=== PATIENT | male | born 1940 | race Caucasian/White ===

== ENCOUNTER → 2016-11-16 | Outpatient (REF) | payer MEDICARE ==
[2016-11-16 12:11] LABS: ALBUMIN 3.8 GM/DL (3.2-5.2); ALBUMIN/GLOBULIN RATIO 1.36 (1.00-1.93); ALKALINE PHOSPHATASE 67 U/L (45-117); ALT/SGPT 28 U/L (12-78); ANION GAP 8 MEQ/L (8-16); AST/SGOT 8 U/L (15-37); BILIRUBIN,TOTAL 0.9 MG/DL (0.2-1.0); BLOOD UREA NITROGEN 18 MG/DL (7-18); CARBON DIOXIDE LEVEL 28 MEQ/L (21-32); CHLORIDE LEVEL 106 MEQ/L (98-107); CHOLESTEROL LEVEL 144 MG/DL (<200); CREATININE FOR GFR 1.04 MG/DL (0.70-1.30); GLOMERULAR FILTRATION RATE > 60.0 (>42); GLUCOSE, FASTING 91 MG/DL (83-110); POTASSIUM SERUM 4.4 MEQ/L (3.5-5.1); SODIUM LEVEL 142 MEQ/L (136-145); TOTAL PROTEIN 6.6 GM/DL (6.4-8.2); TRIGLYCERIDES LEVEL 115 MG/DL (<150)
== END ==
LOC: M SFHCCLAY 07:37
PROVIDERS: ATTEND Family Medicine
DX: E78.2 Mixed hyperlipidemia (principal); I10 Essential (primary) hypertension

== ENCOUNTER → 2017-02-08 | Outpatient (CLI) | payer MEDICARE, BC ==
[~2017-02-08] MED LIST: ASPI81TA85 PO; ATOR40TA75 PO; AZEL0.055; CART120C PO; COUM1TAB17 PO; COUM2.5T17 PO; FENO48TA2 PO; FLOM5CAP PO; FURO40TA2 PO; LOSA25TA8 PO; METO1TAB7 PO; PERC5TAB12 PO; POTA10CA32 PO; ROPI5TAB PO
--- NOTE | 2017-02-08 17:33 | REP ---
CHEST, TWO VIEWS: COMPARISON: 03/03/2012. There appears to be mild fibroatelectatic change in each lung base. No infiltrates are seen. The heart is normal in size. There is mild ectasia of the thoracic aorta. The mediastinal silhouette is unchanged. There are degenerative changes of the spine. IMPRESSION: Chronic changes without acute infiltrate. Signed by Qamar Salvador MD 02/09/2017 08:45 A
[2017-02-08 18:06] LABS: INR 0.97
[2017-02-08 18:08] LABS: ALBUMIN/GLOBULIN RATIO 1.43 (1.00-1.93); ALKALINE PHOSPHATASE 83 U/L (45-117); ALT/SGPT 39 U/L (12-78); ANION GAP 7 MEQ/L (8-16); AST/SGOT 10 U/L (15-37); BILIRUBIN,TOTAL 0.6 MG/DL (0.2-1.0); BLOOD UREA NITROGEN 23 MG/DL (7-18); CALCIUM LEVEL 9.3 MG/DL (8.8-10.2); CARBON DIOXIDE LEVEL 29 MEQ/L (21-32); CHLORIDE LEVEL 106 MEQ/L (98-107); CREATININE FOR GFR 1.17 MG/DL (0.70-1.30); GLOMERULAR FILTRATION RATE > 60.0 (>42); GLUCOSE, FASTING 87 MG/DL (83-110); POTASSIUM SERUM 4.4 MEQ/L (3.5-5.1); SODIUM LEVEL 142 MEQ/L (136-145); TOTAL PROTEIN 6.8 GM/DL (6.4-8.2)
[2017-02-08 18:09] LABS: MEAN CORPUSCULAR HEMOGLOBIN 32.7 pg (27.0-33.0); MEAN CORPUSCULAR HGB CONC 34.4 g/dl (32.0-36.5); MEAN CORPUSCULAR VOLUME 95.2 fl (80.0-96.0); RED CELL DISTRIBUTION WIDTH 13.4 % (11.5-14.5); WHITE BLOOD COUNT 5.4 K/mm3 (4.0-10.0)
== END ==
LOC: M LAB 16:14
PROVIDERS: ATTEND Orthopaedic Surgery
DX: Z01.818 Encounter for other preprocedural examination (principal); M17.11 Unilateral primary osteoarthritis, right knee; Z79.82 Long term (current) use of aspirin; Z79.899 Other long term (current) drug therapy

== ENCOUNTER → 2017-02-10 | Outpatient (CLI) | payer MEDICARE, BC ==
--- NOTE | 2017-02-10 22:56 | ECGEPIP ---
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
--- NOTE | 2017-02-12 15:59 | HPE ---
DATE OF ADMISSION: 02/15/2017 Arrived today for a preoperative history and physical for continuing symptomatic right knee osteoarthritis. HISTORY OF PRESENT ILLNESS: A pleasant male with continuing symptomatic right knee osteoarthritis. He is consented for right total knee arthroplasty per Dr. Piero Lee . Medical optimization per Dr. Mckinney. X-rays are consistent with advanced osteoarthritis. ALLERGIES: No known drug allergies. MEDICATIONS: - fenofibric [address] -Cardia 120 mg once daily - azelastine HCl 0.1% two sprays each nostril twice daily - furosemide 40 mg - potassium 10 mEq capsule - metoprolol succinate ER 50 mg once daily - atorvastatin 40 mg once daily - losartan potassium 25 mg once daily - ropinirole 5 mg once daily - aspirin 81 mg once daily MEDICAL PROBLEM LIST: 1. Right knee symptomatic osteoarthritis. 2. Hypertension. 3. Hypercholesteremia. 4. Heart disease. PAST SURGICAL HISTORY 1. Cordis Cypher coronary stent implanted 04/29/2005. 2. Alloderm graft, human skin tissue, 11/06/2013. SOCIAL HISTORY: Former smoker, quit in 1977. He does consume alcohol daily. Denies illicit drugs. FAMILY HISTORY: Noncontributory. REVIEW OF SYSTEMS: Denies chest pain, shortness of breath, dyspnea on exertion, fever, chills, malaise, upper respiratory or urinary tract symptoms. EKG as read through the [place] showed sinus bradycardia, probable left atrial abnormality, borderline inferior Q-waves. Chest x-ray by [facility] showed chronic changes of acute infiltrate as read by Dr. Qamar Salvador. Medical clearance completed by Dr. Mckinney. The patient was optimized per his note. LABORATORY DATA: Showed just cloudy urine appearance. WBC urine 5, amorphous sediment moderate. Urine culture: No growth. Nasal and sinus culture: normal félix. PHYSICAL EXAMINATION: Height 68 inches, weight 240, temperature 97.6, blood pressure (BP) 125/80, respirations 16, pulse 72. This is a pleasant well-developed, overweight male in no acute distress. He is alert and oriented times three. Mood and affect are appropriate. He ambulates without overt antalgia. Some favoring about the left lower extremity. No gross antalgia. Bilateral lower extremities were inspected. Skin, temperature, color, sensory, motor within normal limits. Right knee: Positive joint line tenderness and crepitance through flexion and extension. Bowels soft, nontender times four. Chest rises symmetrically. Lungs clear to auscultation. Neck supple. Negative jugular venous distention (JVD) or bruits. Normocephalic. IMPRESSION: 1. Symptomatic right knee osteoarthritis. 2. Patient consented for right total knee arthroplasty per Dr. Piero Lee. 3. Medical optimization per Dr. Mckinney. 4. 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 5. Sequential compression devices and thromboembolic deterrents (TEDs) in OR. MTDD
== END ==
LOC: M ADMPAT 09:18
PROVIDERS: ATTEND Orthopaedic Surgery
DX: Z01.818 Encounter for other preprocedural examination (principal); M17.11 Unilateral primary osteoarthritis, right knee
CPT/HCPCS: 81001; 87070; 87086; 93005; G0463

== ENCOUNTER 2017-02-15 11:15 | Inpatient (IN) | payer MEDICARE, BC ==
[2017-02-10 10:35] VITALS: BP 134/82
[~2017-02-15] VITALS: Ht 177.8 cm; Wt 108.9 kg
[~2017-02-15 11:15] MED LIST changes: -COUM1TAB17 PO; -COUM2.5T17 PO; -FLOM5CAP PO; -PERC5TAB12 PO
[2017-02-15] MEDS ORDERED: LR 1,000 ML IV ONE (11:30)
[2017-02-15] MEDS ORDERED: LR 1,000 ML IV SCH ×2 (11:45→15:45)
[2017-02-15] MEDS ORDERED: ACETAMINOPHEN 500 MG TAB PO ONE (11:45)
[2017-02-15] MEDS ORDERED: COUM1TAB17 PO (11:49)
[2017-02-15] MEDS ORDERED: MIDAZOLAM INJ 2 MG/2 ML VIAL (J2250) As Ordered ONE ×3 (12:00→14:07)
[2017-02-15] MEDS ORDERED: PROPOFOL 200 MG/20 ML VIAL As Ordered ONE (12:00)
[2017-02-15] MEDS ORDERED: fentaNYL 100 MCG/2 ML INJECTION (J3010) As Ordered ONE ×2 (12:00→12:10)
[2017-02-15] MEDS ORDERED: LIDOCAINE 2% INJ 100 MG/5 ML SDV (FOR ANES.) As Ordered ONE (12:00)
[2017-02-15] MEDS ORDERED: TRANEXAMIC ACID 100 MG/ML 10ML VIAL As Ordered ONE (12:44)
[2017-02-15] MEDS ORDERED: EPINEPHrine INJ 1 MG/ML 1ML AMP As Ordered ONE (12:44)
[2017-02-15] MEDS ORDERED: BUPIVACAINE LIPOSOME/PF 1.3% 20 ML VIAL (13.3MG/ML)(EXPAREL) As Ordered ONE (12:44)
[2017-02-15] MEDS ORDERED: ceFAZolin 1GM INJ (J0690) As Ordered ONE (13:01)
[2017-02-15] MEDS ORDERED: MIDAZOLAM INJ 2 MG/2 ML VIAL (J2250) IV ONE (13:30)
[2017-02-15] MEDS ORDERED: fentaNYL 100 MCG/2 ML INJECTION (J3010) IV ONE (13:30)
[2017-02-15] MEDS ORDERED: ePHEDrine SULFATE 25 MG/5 ML(5MG/ML) SYRINGE As Ordered ONE (13:51)
[2017-02-15] MEDS ORDERED: PHENYLephrine HCL 500 MCG/5 ML (100MCG/ML) SYRINGE (J2370) As Ordered ONE (13:51)
[2017-02-15] MEDS ORDERED: ROPIvacaine 0.5% 30 ML INJECTION (J2795) ONE (13:57)
[2017-02-15] MEDS ORDERED: dexameTHASONE 10 MG/1 ML VIAL PRES.FREE (J1100) ONE (13:57)
[2017-02-15] MEDS ORDERED: EPINEPHrine INJ 1 MG/ML 1ML AMP ONE (13:57)
[2017-02-15] MEDS ORDERED: ONDANSETRON 4MG/2ML VIAL (J2405) As Ordered ONE (14:51)
[2017-02-15] MEDS ORDERED: MORPHINE 1MG/ML IN 0.9% NACL 100ML IV BAG As Ordered ONE (15:08)
[2017-02-15] MEDS ORDERED: MORPHINE 1MG/ML IN 0.9% NACL 100ML IV BAG IV PRN (15:45)
[2017-02-15] MEDS ORDERED: FLEET ENEMA PR PRN (15:45)
[2017-02-15] MEDS ORDERED: diphenhydrAMINE INJ 50MG/ML VIAL (J1200) IV PRN (15:45)
[2017-02-15] MEDS ORDERED: EPIDURAL/PCA KEYS XX PRN (15:45)
[2017-02-15] MEDS ORDERED: ONDANSETRON 4MG/2ML VIAL (J2405) IV PRN ×2 (15:45)
[2017-02-15] MEDS ORDERED: MORPHINE 2 MG/ML 1ML SYRINGE IV PRN (15:45)
[2017-02-15] MEDS ORDERED: NALOXONE INJ 0.4 MG/1 ML VIAL (J2310) IV PRN (15:45)
[2017-02-15] MEDS ORDERED: fentaNYL 100 MCG/2 ML INJECTION (J3010) IV PRN (15:45)
[2017-02-15] MEDS ORDERED: NALBUPHINE HCL 10 MG/ML AMP (J2300) IV PRN (15:45)
[2017-02-15] MEDS ORDERED: PERCOCET 5MG/325MG TAB PO PRN (15:45)
[2017-02-15] MEDS ORDERED: METOCLOPRAMIDE INJ 10MG/2ML VIAL (J2765) IV PRN (15:45)
[2017-02-15 16:20] VITALS: BP 161/87
--- NOTE | 2017-02-15 16:23 | IPNPDOC ---
Subjective Date Seen The patient was seen on 02/15/17. Subjective Chief Complaint/HPI The patient is a 76-year-old male admitted with a reason for visit of Right Knee Arthritis. Events since last encounter pateint does not offer any complaints at this time, no chest pain or sob , no nausea or vomiting or abdominal pain , no cough or phlegm Objective Physical Examination General Exam: Positive: Alert, Cooperative, No Acute Distress Eye Exam: Positive: PERRLA, Conjunctiva & lids normal, EOMI, Negative: Sclera icteric ENT Exam: Positive: Atraumatic, Mucous membr. moist/pink, Pharynx Normal Neck Exam: Positive: Supple, Negative: JVD, thyromegaly Chest Exam: Positive: Clear to auscultation, Normal air movement Telemetry: Positive: No significant arrhythmia Abdomen Exam: Positive: Normal bowel sounds, Soft, Negative: Tenderness, Hepatospenomegaly Extremity Exam: Positive: Normal pulses, Negative: Clubbing, Cyanosis, Edema Assessment /Plan Problems (1) S/P total knee arthroplasty Status: Acute Problem Text: patient had elective total knee arthroplasty done on 02/15/17 for advanced osteoarthritis. surgery was without any complications pain control and dvt prophylaxis as per ortho protocol. pateint is going to be followed by Dr Smith from 02/16/17 (2) LUIS ANTONIO on CPAP Status: Chronic (3) CAD S/P percutaneous coronary angioplasty Status: Chronic Problem Text: continue home medications. will hold asa as patient going to be on Coumadin. (4) Hypertension Status: Chronic Problem Text: continue home medications losartan , diltiazem and metoprolol with hold parameters. will hold lasix as patient on ivf. will restart on discharge. (5) BPH (benign prostatic hyperplasia) Status: Chronic (6) Restless leg syndrome Status: Chronic Problem Text: continue ropinirole (7) Hyperlipidemia Status: Chronic Problem Text: continue statin. Plan/VTE VTE Prophylaxis Ordered?: Yes VS, I&O, 24H, Fishbone Vital Signs/I&O Vital Signs Date Time Temp Pulse Resp B/P (MAP) Pulse Ox O2 Delivery O2 Flow Rate FiO2 02/15/17 16:05 64 20 131/74 (93) 96 Nasal Cannula 2 02/15/17 15:50 97.3 ANN JASMINE MD Feb 15, 2017 16:23
--- NOTE | 2017-02-15 16:33 | RO ---
DATE OF PROCEDURE: 02/15/2017 PREPROCEDURE DIAGNOSIS: Right knee degenerative arthritis. POSTPROCEDURE DIAGNOSIS: Right knee degenerative arthritis. OPERATIVE PROCEDURE: Right total knee arthroplasty using a size 3 cruciate retaining femoral component with a size 3 tibial tray with a 10 mm rotating platform polyethylene insert. SURGEON: Devon Lee MD PHYSICAL THERAPY MANAGER: Mr. Danilo Diez ANESTHESIA: Right femoral nerve block with a spinal anesthetic. COMPLICATIONS: None. SPECIMENS: Joint surface. ESTIMATED BLOOD LOSS: Less than 50 mL DESCRIPTION OF PROCEDURE: Antibiotics were given intravenously preoperatively, then a successful spinal anesthetic was induced and a tourniquet was placed right upper thigh and not inflated. Right lower extremity was then carefully prepped and draped in the usual sterile fashion. The leg was elevated and then after appropriate time out the tourniquet was inflated to 275 mmHg. Longitudinal incision was made for a medial parapatellar approach to the knee. Bovie cautery was used to coagulate the crossing vessels. A minimal subperiosteal dissection proximal to medial was performed because he had a relatively valgus knee and then there was severe patellofemoral disease as well as both full thickness chondral defects in the medial and lateral femoral condyles. The patella was markedly dished. We managed to edin the patella, then flex the knee and then the drill was placed on the center of the femoral canal followed by the distal femoral cutting block set at a 5 degrees valgus cut at 10 mm resection level for a right knee. It was pinned into position and the distal femoral cut performed. AP sizing jig measured for a size 3 femoral component. The 3 degrees external rotation block was then placed. Even then it had the appearance of there possibly being some deficiency of the lateral femoral condyle, thus on the white side of the line looked reasonable, so did the medial epicondylar axis, however, to be safe I decided to cut the tibia first so I could see what the spacing was between the extension and flexion gap before proceeding with any further femoral work. Thus, the extramedullary alignment jig was placed to allow us to attempt to be parallel to the mechanical axis of the tibia. We referenced off the medial tibia and lateral tibial condyles at 4 mm resection level and both showed equal resection. Thus at this point, the block was pinned into position and then we used the extramedullary alvarez to help be sure and estimate once again that we were indeed parallel to the mechanical axis of the tibia. The proximal tibia osteotomy was then performed. I then used the 8 mm spacer block to align with the previous distal femoral cut and it showed indeed that we appeared to have good parallelism between the flexion and extension gaps, thus I felt the rotation was adequate. Thus the four-in-one block was then applied to the femur, pinned into position and we performed and then we performed the anterior posterior and chamfer cuts taking great care to protect the surrounding soft tissues. The spacer blocks were then trialed, however, he was tight with a 10 mm block in both flexion and in extension, thus the tibial cutting jig was reapplied and additional 2 mm were resected. This allowed the 10 mm block to fit nicely with good stability to varus valgus stress testing both in flexion and in extension. We then exposed the proximal tibia, sized for a 3 tibial tray which was pinned into position followed by the reamer and broach, then trial of polyethylene placed. However, it should noted that prior to this we did do a resection of the medial and lateral meniscal tissues and debridement of the posterior medial and posterior lateral osteophytes prior to placing our tibial tray trial. The femoral component was then applied, brought the knee to extension. Again he had good flexion and extension, varus valgus stability. The patella was everted and noted to be markedly dished, but a patellar osteotomy was then performed, sized for a 38 button, which then the lug holes were drilled, trial polyethylene was placed and the patellofemoral tracking came out anatomic. We drilled the lug holes for the femur and then removed the trial femoral and tibial tray, then Exparel was placed into the posterior capsule trochlear notch and along the periosteum of the femur and the tibia and the arthrotomy. Mr. Diez then mixed the cement on the back table as I prepared the bony surfaces for cementing with a copious amount of pulsatile lavage irrigant solution. Once all the surfaces had been dried thoroughly, we cemented the tibial tray, removed excess cement, placed the polyethylene and then cemented the femoral component, removed the excess cement, brought the knee into extension, then cemented the patellar button and clamped it. Removed the excess cement and held that position until the cement had hardened. While we were waiting we again pulsatile lavage irrigated out the knee joint and then instilled the tranexamic acid into the knee and then the remaining Exparel into the capsular tissues. We then closed the arthrotomy with two #1 PDS Fordyce sutures and then one at the medial parapatellar area, then a running double arm Stratafix was used to close the capsule. We let the tourniquet down at this point, closed deep subdermal tissues with interrupted PDS sutures, skin was closed with johnathan, covered by Adaptic dry sterile dressing. Mr. Diez was also critical to the success of this difficult surgery by helping manipulate the knee, help with appropriate soft tissue retraction, help with appropriate soft tissue retraction, helped to mix the cement, helped to close the wound, prepare the patient amongst many other tasks.
[2017-02-15 17:00] VITALS: BP 138/82
[2017-02-15] MEDS: LR 1,000 ML IV SCH (17:00)
[2017-02-15] MEDS ORDERED: WARFARIN SOD 5 MG TAB PO ONE (17:00)
[2017-02-15 18:00] VITALS: BP 115/77
[2017-02-15 19:00] VITALS: BP 120/74
[2017-02-15] MEDS: rOPINIRole 0.25 MG TAB(REQUIP) PO SCH (21:07)
[2017-02-15] MEDS: ATORVASTATIN 20 MG TAB PO SCH (21:10)
[2017-02-15] MEDS: METOPROLOL SUCC (TopROL XL) 50MG **XL** TAB PO SCH (21:10)
[2017-02-15 22:00] VITALS: BP 162/80
[2017-02-16] MEDS: LR 1,000 ML IV SCH (03:47)
[2017-02-16] MEDS ORDERED: ONDANSETRON 4 MG TAB (S0181) PO PRN (07:00)
[2017-02-16] MEDS ORDERED: PERCOCET 5MG/325MG TAB PO PRN ×2 (07:00)
[2017-02-16 07:06] LABS: MEAN CORPUSCULAR HEMOGLOBIN 32.9 pg (27.0-33.0); MEAN CORPUSCULAR HGB CONC 33.4 g/dl (32.0-36.5); MEAN CORPUSCULAR VOLUME 98.5 fl (80.0-96.0); RED CELL DISTRIBUTION WIDTH 13.6 % (11.5-14.5); WHITE BLOOD COUNT 7.4 K/mm3 (4.0-10.0)
[2017-02-16 07:17] LABS: ANION GAP 9 MEQ/L (8-16); BLOOD UREA NITROGEN 16 MG/DL (7-18); CALCIUM LEVEL 8.9 MG/DL (8.8-10.2); CARBON DIOXIDE LEVEL 27 MEQ/L (21-32); CHLORIDE LEVEL 103 MEQ/L (98-107); CREATININE FOR GFR 1.07 MG/DL (0.70-1.30); GLOMERULAR FILTRATION RATE > 60.0 (>42); GLUCOSE, FASTING 120 MG/DL (83-110); POTASSIUM SERUM 4.2 MEQ/L (3.5-5.1); SODIUM LEVEL 139 MEQ/L (136-145)
[2017-02-16 07:27] LABS: INR 1.12
[2017-02-16] MEDS: MOM 30ML SUSPENSION UDC PO SCH (08:11)
[2017-02-16] MEDS: MIRALAX *UNIT DOSE* 17GM PACKET PO SCH (08:11)
[2017-02-16] MEDS: TAMSULOSIN 0.4 MG CAP PO SCH (08:12)
[2017-02-16] MEDS: SENOKOT S TAB PO SCH ×2 (08:12→20:02)
[2017-02-16] MEDS: FENOFIBRATE 48 MG TAB (TRICOR) PO SCH (08:12)
[2017-02-16] MEDS: BISACODYL 10 MG SUPP PR SCH ×2 (09:00→20:05)
--- NOTE | 2017-02-16 12:47 | REP ---
RIGHT KNEE: AP and lateral views of the right knee are performed. There is a total knee prosthesis in good position. The structures are well aligned. Metallic skin johnathan are seen anteriorly. Signed by Qamar Salvador MD 02/16/2017 05:09 P
[2017-02-16 14:00] VITALS: BP 156/78
[2017-02-16] MEDS: ACETAMINOPHEN TAB 650MG DOSE (2X325MG) PO PRN ×2 (14:37→20:03)
--- NOTE | 2017-02-16 15:12 | IPN ---
DATE: 02/16/2017 This is a 76-year-old gentleman seen at bedside. Overnight he did have an issue with urinary retention. They straight catheterized him. Wanted to try to straight catheterize him again today and were unable to advance the straight catheter enough to get some return. The bladder scan did demonstrate that he had close to 300 mL in his bladder. We did start him on Flomax, which did seem to relieve his symptoms later in the morning. OBJECTIVE: Temperature is 96.6, pulse 83, respiratory rate is 20, blood pressure (BP) 156/93, SPO2 is 95% on room air. GENERAL: The patient appears to be in no acute distress. Is alert, oriented. HEENT: Unremarkable. LUNGS: Clear. HEART: Regular rate and rhythm. ABDOMEN: Soft. EXTREMITIES: No edema or calf tenderness. LABORATORY DATA: White count 5.2, hemoglobin 12.0, platelets are 241,000. Sodium 141, potassium 4.5, chloride 105, bicarbonate 30, anion gap 6, BUN is 21, creatinine 0.63, glucose 138, magnesium is 1.8. ASSESSMENT AND PLAN: 1. Urinary retention, likely secondary to anesthesia and underlying history of likely benign prostatic hypertrophy (BPH). I did start him on Flomax this morning. He does appear to be responsive to this. I did discuss the case with urology. Will hold off on consult for now unless the patient has worsening symptoms. 2. Obstructive sleep apnea on continuous positive airway pressure (CPAP). Continue use of home CPAP. 3. Coronary artery disease status post percutaneous coronary angioplasty. Continue home medications: Hold aspirin and Coumadin for now 4. Hypertension, chronic, stable, on losartan, diltiazem, metoprolol with hold parameters in place. Intravenous (IV) Lasix is on hold for now. Will resume on discharge 5. BPH as outlined above. 6. Restless leg syndrome, stable. 7. Hyperlipidemia. Continue statin. 8. Deep vein thrombosis (DVT) prophylaxis per orthopedics 9. Pain control per orthopedics. MTDD
[2017-02-16] MEDS ORDERED: WARFARIN SOD 5 MG TAB PO ONE (17:00)
[2017-02-16] MEDS: METOPROLOL SUCC (TopROL XL) 50MG **XL** TAB PO SCH (20:02)
[2017-02-16] MEDS: rOPINIRole 0.25 MG TAB(REQUIP) PO SCH (20:02)
[2017-02-16] MEDS: ATORVASTATIN 20 MG TAB PO SCH (20:02)
[2017-02-16 22:00] VITALS: BP 157/77
[2017-02-17 06:00] VITALS: BP 133/78
[2017-02-17] MEDS: ACETAMINOPHEN TAB 650MG DOSE (2X325MG) PO PRN (06:36)
[2017-02-17 07:14] LABS: MEAN CORPUSCULAR HGB CONC 34.3 g/dl (32.0-36.5); MEAN CORPUSCULAR VOLUME 96.1 fl (80.0-96.0); RED CELL DISTRIBUTION WIDTH 13.3 % (11.5-14.5); WHITE BLOOD COUNT 7.2 K/mm3 (4.0-10.0)
[2017-02-17 07:20] LABS: ANION GAP 10 MEQ/L (8-16); BLOOD UREA NITROGEN 19 MG/DL (7-18); CALCIUM LEVEL 8.5 MG/DL (8.8-10.2); CARBON DIOXIDE LEVEL 25 MEQ/L (21-32); CHLORIDE LEVEL 103 MEQ/L (98-107); CREATININE FOR GFR 1.03 MG/DL (0.70-1.30); GLOMERULAR FILTRATION RATE > 60.0 (>42); GLUCOSE, FASTING 123 MG/DL (83-110); POTASSIUM SERUM 4.2 MEQ/L (3.5-5.1); SODIUM LEVEL 138 MEQ/L (136-145)
[2017-02-17 07:23] LABS: INR 1.42
[2017-02-17] MEDS ORDERED: FLOM5CAP PO (07:23)
[2017-02-17] MEDS ORDERED: COUM2.5T17 PO (08:08)
[2017-02-17] MEDS ORDERED: PERC5TAB12 PO (08:08)
[2017-02-17] MEDS ORDERED: ENOXAPARIN 40 MG/0.4 ML SYRINGE (J1650) SC ONE (08:30)
[2017-02-17 09:00] VITALS: BP 132/79
[2017-02-17] MEDS: BISACODYL 10 MG SUPP PR SCH (09:00)
[2017-02-17] MEDS: MOM 30ML SUSPENSION UDC PO SCH (09:00)
[2017-02-17] MEDS: MIRALAX *UNIT DOSE* 17GM PACKET PO SCH (09:00)
[2017-02-17] MEDS: TAMSULOSIN 0.4 MG CAP PO SCH (09:50)
[2017-02-17] MEDS: SENOKOT S TAB PO SCH (09:51)
[2017-02-17] MEDS: FENOFIBRATE 48 MG TAB (TRICOR) PO SCH (09:51)
--- NOTE | 2017-02-21 19:40 | DSES ---
DATE OF ADMISSION: 02/15/2017 DATE OF DISCHARGE: 02/17/2017 DISCHARGE DIAGNOSIS: Right knee arthritis status post right total knee arthroplasty. HISTORY: This is a pleasant 76-year-old male with persistent right knee pain and stiffness. He has failed to improve with conservative treatment. He has elected for surgery for his continued symptoms. He complains of pain with weightbearing activities and activities of daily living. PROCEDURE PERFORMED: Right total knee arthroplasty. HOSPITAL COURSE: The patient was admitted on the day of surgery and underwent right total knee arthroplasty without complications. On the day of discharge the patient was up with physical therapy and was doing well. DISCHARGE PLAN: The patient will be weightbearing as tolerated to the right lower extremity. He will use oral medications for pain control. He will followup in the office in 2 weeks for staple removal.
== END 2017-02-17 13:25 | disposition home health service (06) | DRG 470 ==
LOC: M OR 11:15 → M MS5PR 16:20
PROVIDERS: ADMIT Orthopaedic Surgery; ATTEND Orthopaedic Surgery
PROC: 0SRC0J9 Replacement of Right Knee Joint with Synthetic Substitute, Cemented, Open Approach (ICD-10-PCS; principal; 2017-02-15 13:35)
DX: M17.11 Unilateral primary osteoarthritis, right knee (principal); I10 Essential (primary) hypertension; R33.9 Retention of urine, unspecified; G47.33 Obstructive sleep apnea (adult) (pediatric); I25.10 Atherosclerotic heart disease of native coronary artery without angina pectoris; N40.0 Benign prostatic hyperplasia without lower urinary tract symptoms; E78.5 Hyperlipidemia, unspecified; G25.81 Restless legs syndrome

== ENCOUNTER → 2017-03-09 | Outpatient (REF) | payer MEDICARE, BC ==
[~2017-03-09] MED LIST changes: +COUM1TAB17 PO; +COUM2.5T17 PO; +FLOM5CAP PO; +PERC5TAB12 PO
[2017-03-09 17:58] LABS: INR 1.12
== END ==
LOC: M LAB REF 16:15
PROVIDERS: ATTEND Nurse Practitioner Family
DX: Z51.81 Encounter for therapeutic drug level monitoring (principal); Z79.01 Long term (current) use of anticoagulants

== ENCOUNTER → 2017-03-11 | Outpatient (REF) | payer MEDICARE, BC ==
[2017-03-11 12:53] LABS: INR 1.17
== END ==
LOC: M LABDRAWC 11:42
PROVIDERS: ATTEND Nurse Practitioner Family
DX: Z79.01 Long term (current) use of anticoagulants (principal)

== ENCOUNTER → 2017-03-15 | Outpatient (REF) | payer MEDICARE, BC ==
[2017-03-15 12:06] LABS: INR 1.92
== END ==
LOC: M SFHCCLAY 11:22
PROVIDERS: ATTEND Nurse Practitioner Family
DX: Z79.01 Long term (current) use of anticoagulants (principal)

== ENCOUNTER → 2017-09-13 | Outpatient (CLI) | payer MEDICARE, BC | LOC: M CLY 09:17 | DX: M51.34 Other intervertebral disc degeneration, thoracic region (principal) | CPT/HCPCS: 72072 ==

== ENCOUNTER → 2017-11-09 | Outpatient (REF) | payer MEDICARE ==
[2017-11-09 12:23] LABS: ALBUMIN/GLOBULIN RATIO 1.54 (1.00-1.93); ALKALINE PHOSPHATASE 71 U/L (45-117); ALT/SGPT 24 U/L (12-78); ANION GAP 5 MEQ/L (8-16); AST/SGOT 6 U/L (7-37); BILIRUBIN,TOTAL 0.5 MG/DL (0.2-1.0); BLOOD UREA NITROGEN 16 MG/DL (7-18); CALCIUM LEVEL 8.4 MG/DL (8.8-10.2); CARBON DIOXIDE LEVEL 29 MEQ/L (21-32); CHLORIDE LEVEL 110 MEQ/L (98-107); CHOLESTEROL LEVEL 134 MG/DL (<200); CHOLESTEROL RISK RATIO 2.851 (<5); CREATININE FOR GFR 0.95 MG/DL (0.70-1.30); GLOMERULAR FILTRATION RATE > 60.0 (>42); GLUCOSE, FASTING 95 MG/DL (70-100); HDL CHOLESTEROL 47 MG/DL (>40); LDL CHOLESTEROL 68.6 MG/DL (<100); NON-HDL-C 87 MG/DL; POTASSIUM SERUM 4.5 MEQ/L (3.5-5.1); PSA SCREENING 0.61 NG/ML (< 4.0); SODIUM LEVEL 144 MEQ/L (136-145); TOTAL PROTEIN 6.6 GM/DL (6.4-8.2); TRIGLYCERIDES LEVEL 92 MG/DL (<150)
== END ==
LOC: M SFHCCLAY 07:43
DX: E78.2 Mixed hyperlipidemia (principal); Z12.5 Encounter for screening for malignant neoplasm of prostate; I10 Essential (primary) hypertension
CPT/HCPCS: 84443

== ENCOUNTER 2018-01-26 11:33 | Day surgery (SDC) | payer MEDICARE, BC ==
[2018-01-26] MEDS: NS 1,000 ML IV (11:45)
[2018-01-26] MEDS ORDERED: PROPOFOL 200 MG/20 ML VIAL As Ordered ×2 (12:48→13:00)
== END 2018-01-26 13:39 | disposition home or self-care (01) ==
LOC: M OPP 11:33
DX: Z12.11 Encounter for screening for malignant neoplasm of colon (principal); K64.0 First degree hemorrhoids; D12.2 Benign neoplasm of ascending colon; G47.30 Sleep apnea, unspecified; N40.0 Benign prostatic hyperplasia without lower urinary tract symptoms; I51.9 Heart disease, unspecified; I11.9 Hypertensive heart disease without heart failure; E78.00 Pure hypercholesterolemia, unspecified; M12.9 Arthropathy, unspecified; Z79.01 Long term (current) use of anticoagulants; Z79.891 Long term (current) use of opiate analgesic; Z79.899 Other long term (current) drug therapy; Z87.891 Personal history of nicotine dependence; Z95.5 Presence of coronary angioplasty implant and graft
CPT/HCPCS: 45385

== ENCOUNTER → 2018-05-16 | Outpatient (REF) | payer MEDICARE ==
[2018-05-16 11:56] LABS: ANION GAP 6 MEQ/L (8-16); BLOOD UREA NITROGEN 21 MG/DL (7-18); CALCIUM LEVEL 8.6 MG/DL (8.8-10.2); CARBON DIOXIDE LEVEL 30 MEQ/L (21-32); CHLORIDE LEVEL 105 MEQ/L (98-107); CHOLESTEROL LEVEL 138 MG/DL (<200); CREATININE FOR GFR 0.97 MG/DL (0.70-1.30); GLOMERULAR FILTRATION RATE > 60.0 (>42); GLUCOSE, FASTING 92 MG/DL (70-100); HDL CHOLESTEROL 50 MG/DL (>40); LDL CHOLESTEROL 57 MG/DL (<100); NON-HDL-C 88 MG/DL; POTASSIUM SERUM 4.7 MEQ/L (3.5-5.1); SODIUM LEVEL 141 MEQ/L (136-145); TRIGLYCERIDES LEVEL 153 MG/DL (<150)
== END ==
LOC: M SFHCCLAY 07:47
DX: E78.2 Mixed hyperlipidemia (principal)
CPT/HCPCS: 80061

== ENCOUNTER 2018-08-31 08:19 | Day surgery (SDC) | payer MEDICARE, BC ==
[~2018-08-31] VITALS: Ht 177.8 cm; Wt 108.4 kg
[~2018-08-31 08:19] MED LIST changes: +FLOM0.4C39 PO; -FLOM5CAP PO; +LOSA25TA14 PO; -LOSA25TA8 PO; +MULT1TAB10 PO; +NS 1,000 ML IV ONE; -ROPI5TAB PO; +ROPI5TAB3 PO
[2018-08-31] MEDS ORDERED: LIDOCAINE 2% INJ 100 MG/5 ML SDV (FOR ANES.) As Ordered ONE (09:17)
[2018-08-31] MEDS ORDERED: PROPOFOL 200 MG/20 ML VIAL As Ordered ONE (09:31)
--- NOTE | 2018-08-31 09:46 | ROOR ---
Patient Name: Cleopatra Beltran Procedure Date: 08/31/2018 9:14 AM Date of : 1940 Age: 78 Room: [facility] Gender: Male Note Status: Finalized Procedure: Total Colonoscopy + Cold/Biopsy Polypectomy Indications: High risk colon cancer surveillance: Personal history of colonic polyps, High risk colon cancer surveillance: Personal history of adenoma with villous component, Incidental - Follow-up for history of colon polyps of uncertain behavior Providers: Milad Correa MD Referring MD: BRONWYN MURRAY DO Requesting Provider: Medicines: Monitored Anesthesia Care Complications: No immediate complications. Procedure: Pre-Anesthesia Assessment: - The heart rate, respiratory rate, oxygen saturations, blood pressure, adequacy of pulmonary ventilation, and response to care were monitored throughout the procedure. The Colonoscope was introduced through the anus and advanced to the cecum, identified by appendiceal orifice and ileocecal valve. The colonoscopy was performed without difficulty. The patient tolerated the procedure well. The quality of the bowel preparation was good. Findings: The perianal and digital rectal examinations were normal. Non-bleeding internal hemorrhoids were found during retroflexion. The hemorrhoids were small and Grade I (internal hemorrhoids that do not prolapse). Multiple small and large-mouthed diverticula were found in the recto-sigmoid colon, sigmoid colon and descending colon. A small polyp was found at 50 cm proximal to the anus. The polyp was sessile. The polyp was removed with a cold snare. Resection and retrieval were complete. Two sessile polyps were found in the transverse colon. The polyps were small in size. These polyps were removed with a jumbo cold forceps. Resection and retrieval were complete. The exam was otherwise without abnormality on direct and retroflexion views. Impression: - Non-bleeding internal hemorrhoids. - Diverticulosis in the recto-sigmoid colon, in the sigmoid colon and in the descending colon. - One small polyp at 50 cm proximal to the anus, removed with a cold snare. Resected and retrieved. - Two small polyps in the transverse colon, removed with a jumbo cold forceps. Resected and retrieved. - The examination was otherwise normal on direct and retroflexion views. - The exam was otherwise normal to the cecum. Recommendation: - Patient has a contact number available for emergencies. The signs and symptoms of potential delayed complications were discussed with the patient. Return to normal activities tomorrow. Written discharge instructions were provided to the patient. - High fiber diet. - Discharge patient to home. - Continue present medications. - Repeat colonoscopy in 3 years for surveillance based on pathology results. - Return to referring physician. - Check Portal Online for Path Results.([email or web address]) - The findings and recommendations were discussed with the patient's family. Milad Correa MD Milad Correa MD 08/31/2018 9:46:00 AM This report has been signed electronically. Number of Addenda: 0 Note Initiated On: 08/31/2018 9:14 AM Estimated Blood Loss: Estimated blood loss: none.
[2018-08-31 10:15] VITALS: BP 166/92
== END 2018-08-31 10:24 | disposition home or self-care (01) ==
LOC: M OPP 08:19
PROVIDERS: ATTEND Internal Medicine Gastroenterology
DX: Z86.010 Personal history of colon polyps (principal); Z08 Encounter for follow-up examination after completed treatment for malignant neoplasm; K64.0 First degree hemorrhoids; D12.3 Benign neoplasm of transverse colon; K57.30 Diverticulosis of large intestine without perforation or abscess without bleeding; G47.30 Sleep apnea, unspecified; Z79.82 Long term (current) use of aspirin; Z79.899 Other long term (current) drug therapy; Z95.5 Presence of coronary angioplasty implant and graft; Z79.891 Long term (current) use of opiate analgesic

== ENCOUNTER → 2018-12-09 | Outpatient (CLI) | payer MEDICARE, BC ==
[~2018-12-09] MED LIST changes: +B COTAB3 PO; +C 50TAB PO; +MULTCAP PO; -NS 1,000 ML IV ONE; +PURE500C5 PO; +VITAD1000T PO
[2018-12-09 09:48] LABS: HEMATOCRIT 53.8 % (42.0-52.0); HEMOGLOBIN 18.1 g/dl (13.5-17.5); MEAN CORPUSCULAR HGB CONC 33.6 g/dl (32.0-36.5); PLATELET COUNT, AUTOMATED 196 10^3/uL (150-450); RED BLOOD COUNT 5.49 10^6/uL (4.30-6.10); WHITE BLOOD COUNT 4.1 10^3/uL (4.0-10.0)
[2018-12-09 09:53] LABS: INR 0.98; PROTHROMBIN TIME 13.1 SECONDS (12.1-14.4)
[2018-12-09 10:10] LABS: ALT/SGPT 40 U/L (12-78); BILIRUBIN,TOTAL 0.9 MG/DL (0.2-1.0); BLOOD UREA NITROGEN 16 MG/DL (7-18); CALCIUM LEVEL 9.4 MG/DL (8.8-10.2); CARBON DIOXIDE LEVEL 32 MEQ/L (21-32); CHLORIDE LEVEL 104 MEQ/L (98-107); GLOMERULAR FILTRATION RATE > 60.0 (>42); GLUCOSE, FASTING 67 MG/DL (70-100); POTASSIUM SERUM 4.7 MEQ/L (3.5-5.1); SODIUM LEVEL 141 MEQ/L (136-145)
[2018-12-09 10:13] LABS: ERYTHROCYTE SEDIMENTATION RATE 4 mm/hr (0-20)
--- NOTE | 2018-12-09 12:42 | REP ---
Chest two views HISTORY: Preop Comparison: 02/08/2017 A minimal increase in interstitial markings is present in the lower lobes consistent with chronic interstitial fibrosis. The heart is normal in size. The pulmonary vasculature is normal in appearance. The bony structure is intact. IMPRESSION: Bibasilar chronic interstitial fibrosis. Electronically Signed by Fernando Thomas MD 12/09/2018 12:33 P
--- NOTE | 2018-12-09 20:19 | ECGEPIP ---
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 Electronically Signed on 12-09-2018 20:19:30 EDT by Tucker Figueroa
== END ==
LOC: M LAB 09:07
PROVIDERS: ATTEND Orthopaedic Surgery
DX: Z01.812 Encounter for preprocedural laboratory examination (principal); M17.12 Unilateral primary osteoarthritis, left knee; R91.8 Other nonspecific abnormal finding of lung field; R00.1 Bradycardia, unspecified

== ENCOUNTER 2018-12-26 07:00 | Inpatient (IN) | payer MEDICARE, BC ==
--- NOTE | 2018-12-22 13:03 | HPE ---
DATE OF ADMISSION: 12/26/2018 HISTORY OF PRESENT ILLNESS This is a pleasant male with continuing symptomatic left knee osteoarthritis. He has consented for a left total knee arthroplasty per Dr. Piero Lee. Medical optimization per Dr. Noble. X-rays are consistent with advanced osteoarthritis. ALLERGIES: None known to medications. CURRENT MEDICATION LIST: - multivitamin chewable once a day - Vitamin B complex orally daily - cyclobenzaprine HCl 10 mg tablet one as needed orally three times a day - Vitamin D3 1000 units capsule 1 capsule orally once a day - losartan potassium 25 mg tablet 1 tablet orally once a day - azelastine HCl 0.1% solution 2 puffs in each nostril nasally twice a day p.r.n. - atorvastatin calcium 40 mg tablet 1 tablet orally once a day - Cartia XT 120 mg capsule extended release 24-hour 1 capsule orally once a day - metoprolol succinate ER 50 mg tablet extended release 24-hour 1 tablet orally once a day - aspirin 81 mg tablet delayed release 1 tablet orally once a day - ropinirole HCl 5 mg tablet 1 tablet orally once a day - Cialis 20 mg tablet 1 tablet orally once a day as needed MEDICAL PROBLEM LIST: 1. Symptomatic left knee osteoarthritis. 2. Hyperlipidemia. 3. Unspecified essential hypertension. 4. Restless leg syndrome. 5. Deviated nasal septum. 6. Coronary artery disease. 7. Angina nonspecified. 8. Obstructive sleep apnea on C-PAP. SURGICAL HISTORY: 1. Coronary stent implantation 04/29/2005. 2. AlloDerm graft human skin tissue 11/2013. 3. Bilateral cataract 2009. 4. Bilateral knee arthroscopy. 5. Right total knee Dr. Piero Lee 2016. 6. Colonoscopy Dr. Correa 2007. 7. Colonoscopy, three large polyps, villous adenoma, 01/2018. 8. Colonoscopy polyps, repeat 08/2018. FAMILY HISTORY: Father 78, emphysema. Mother 101 years, diagnosed with hypertension. Siblings, brain stem cancer. Daughter, breast cancer. SOCIAL HISTORY: Former smoker. It has been greater than 10 years since his last cigarette. He denies alcohol or recreational drugs. REVIEW OF SYSTEMS: Denies chest pain, shortness of breath, dyspnea on exertion, fever, chills, malaise, upper respiratory or urinary tract symptoms. LABS: Reviewed, acquired 12/09/2018, hemoglobin 18.1, hematocrit 53.8, MCV 98.0, glucose 67, anion gap 5, otherwise all labs within normal limits. GFR noted to be within normal limits greater than 60. Chest x-ray shows bibasilar chronic interstitial fibrosis. EKG sinus bradycardia, otherwise normal, as read by Dr. Tucker Figueroa. MEDICAL CLEARANCE: Per Dr. Noble. PHYSICAL EXAMINATION: Blood pressure (BP) 127/87, pulse 88, temperature 97.5, height 68.5, weight 241 pounds and 6 ounces, BMI 36.2, respirations 13. This is a pleasant well-developed, well-nourished obese male in no acute distress. Alert and oriented times. Mood and affect are appropriate. Bilateral lower extremities benign, noninfectious looking, skin is intact. Left knee positive joint line tenderness with crepitance through flexion and extension. He does have a firm abdomen secondary to central obesity, also some herniation noted, he admits to history of herniation and some surgical intervention. Chest rises symmetrically. Regular rate and rhythm. Lungs clear. Neck: Supple. Negative jugular venous distention (JVD) or bruits. Normocephalic. IMPRESSION: 1. Left knee symptomatic tricompartmental osteoarthritis. 2. Patient consented for left total knee arthroplasty per Dr. Piero Lee. 3. Medical optimization per Dr. Noble. 4. On-call to OR 2 grams IV Kefzol in OR. 5. Sequential compression device (SCD) and thromboembolic deterrent stockings (TEDS) in OR. MTDD
[~2018-12-26] VITALS: Ht 177.8 cm; Wt 109.3 kg
[2018-12-26] VITALS (20 sets, daily range): BP systolic 132–187; BP diastolic 68–124
[~2018-12-26 07:00] MED LIST changes: +ACETAMINOPHEN 500 MG TAB PO ONE; +LIDOCAINE 1% MDV 20ML VIAL SQ PRN; +LR 1,000 ML IV ONE; +fentaNYL 100 MCG/2 ML INJECTION (J3010) IV SCH
[2018-12-26] MEDS ORDERED: LIDOCAINE 2% INJ 100 MG/5 ML SDV (FOR ANES.) As Ordered ONE (07:17)
[2018-12-26] MEDS ORDERED: PROPOFOL 200 MG/20 ML VIAL As Ordered ONE (07:17)
[2018-12-26] MEDS ORDERED: BUPIVACAINE/DEXTROSE 0.75% 2 ML AMP As Ordered ONE (07:22)
[2018-12-26] MEDS ORDERED: EPINEPHrine INJ 1 MG/ML 1ML AMP As Ordered ONE (07:57)
[2018-12-26] MEDS ORDERED: ceFAZolin 1GM INJ (J0690 PER 500MG) As Ordered ONE (07:57)
[2018-12-26] MEDS ORDERED: TRANEXAMIC ACID 100 MG/ML 10ML VIAL As Ordered ONE (07:57)
[2018-12-26] MEDS ORDERED: BUPIVACAINE HCL 0.25% 10 ML VIAL As Ordered ONE (07:57)
[2018-12-26] MEDS ORDERED: BUPIVACAINE LIPOSOME/PF 1.3% 20ML VIAL (13.3MG/ML)(EXPAREL)(C9290 PER1MG) As Ordered ONE (07:57)
[2018-12-26] MEDS ORDERED: fentaNYL 100 MCG/2 ML INJECTION (J3010) As Ordered ONE (08:19)
[2018-12-26] MEDS ORDERED: MIDAZOLAM INJ 2 MG/2 ML VIAL (J2250) As Ordered ONE (08:19)
[2018-12-26] MEDS: MIDAZOLAM INJ 2 MG/2 ML VIAL (J2250) IV SCH ×2 (08:27→08:29)
[2018-12-26] MEDS ORDERED: LIDOCAINE 1% MDV 20ML VIAL ONE (10:53)
[2018-12-26] MEDS ORDERED: dexameTHASONE 10 MG/1 ML VIAL PRES.FREE (J1100) ONE (10:53)
[2018-12-26] MEDS ORDERED: EPINEPHrine INJ 1 MG/ML 1ML AMP ONE (10:53)
[2018-12-26] MEDS ORDERED: fentaNYL 100 MCG/2 ML INJECTION (J3010) IV PRN (11:30)
[2018-12-26] MEDS ORDERED: METOCLOPRAMIDE INJ 10MG/2ML VIAL (J2765) IV PRN (11:30)
[2018-12-26] MEDS ORDERED: ONDANSETRON 4MG/2ML VIAL (J2405) IV PRN (11:30)
[2018-12-26] MEDS ORDERED: ACETAMINOPHEN TAB 650MG DOSE (2X325MG) PO PRN (11:30)
[2018-12-26] MEDS ORDERED: MEPERIDINE INJ 25 MG/ML VIAL (J2175) IV PRN (11:30)
[2018-12-26] MEDS ORDERED: FLEET ENEMA PR PRN (11:30)
[2018-12-26] MEDS ORDERED: LR 1,000 ML IV SCH ×2 (11:30→12:00)
[2018-12-26] MEDS ORDERED: PERCOCET 5MG/325MG TAB PO PRN ×2 (11:30→17:15)
--- NOTE | 2018-12-26 12:07 | CR.PDOC ---
General Date of Consultation: Dec 26, 2018 Consultation REASON FOR CONSULTATION/CHIEF COMPLAINT: Presented to [facility] for an elective procedure with orthopedic surgery HISTORY OF PRESENT ILLNESS: Patient is a 78 year old male with a PMHx of CAD s/p stent (2004), HTN, DLP, LUIS ANTONIO on CPAP, RLS, Bilateral OA of his knees who presented to the ER for an elective procedure with orthopedic surgery. Patient has been experiencing left knee pain and has failed conservative therapy. He was scheduled for an elective total left knee arthroplasty. He received medical clearance from his outpatient provider, Dr. Carmen Rincon. He did not require any cardiac clearance. Hospitalist service was called for medical management. Patient is seen post-operatively, he denies any CP, SOB, palpitations. N/V, abdominal pain, C/D or urinary discomfort. Denies any F/C in the last 2 weeks. Reports that his appetite is fine and reports that his weight has been consistent. ALLERGIES: Please see below. HOME MEDICATIONS: Please see below. PAST MEDICAL HISTORY: CAD s/p stent (2004), HTN, DLP, LUIS ANTONIO on CPAP, RLS, Bilateral OA of his knees PAST SURGICAL HISTORY: Skin graft to R lower eye lid in 2013 Bilateral cataract extraction 2009 Bilateral knee arthroscopy 2001 Right total knee arthroplasty 2001 Colonoscopy; 2007, 2017 - with removal of 3 large polyps + villous adenoma; 2018 - with polyp FAMILY HISTORY: - Mother at age 101; history of HTN - Father at age 78; history of lung disease - Daughter with breast cancer SOCIAL HISTORY: - Denies the use of illicit drugs; Ex-smoker; quit 42 years ago; smoker of 10 years at <1ppd, Social alcohol use - Denies recent travel or sick contacts - Lives with - 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 ASSESSMENT/PLAN: Left knee pain - likely 2/2 osteoarthritis - s/p total left knee arthroplasty (POD#0) - Presented to [facility] for an elective procedure with orthopedic surgery - Received outpatient medical clearance from Dr. Carmen Rincon - Pain control, anticoagulation and physical therapy at the direction of orthopedic surgery CAD s/p stent (2004) - c/w Metoprolol and Atorvastatin - Will hold ASA; while on full anticoagulation HTN - BP well controlled - c/w Metoprolol, Diltiazem, Losartan, DLP - c/w Atorvastatin LUIS ANTONIO on CPAP - May allow home CPAP use while inpatient RLS - c/w Ropinirole Vitamin D deficiency - c/w supplementation DVT prophylaxis - As per orthopedic surgery Vital Signs/I&O Vital Signs Date Time Temp Pulse Resp B/P (MAP) Pulse Ox O2 Delivery O2 Flow Rate FiO2 12/26/18 11:30 57 16 128/82 (97) 93 12/26/18 11:17 96.4 12/26/18 09:05 3 Allergies Coded Allergies: No Known Allergies (Unverified , 12/26/18) Home Medications Scheduled Ascorbic Acid (Vitamin C) 500 Mg Tablet, 500 MG PO DAILY, (Reported) Aspirin (Aspir 81) 81 Mg Tab, 81 MG PO QHS, #30 (Reported) Atorvastatin Calcium (Atorvastatin Calcium) 40 Mg Tab, 40 MG PO QHS, (Reported) Azelastine HCl (Azelastine HCl) 0.15 % Spr, 0.15 % NA PRN, (Reported) Diltiazem HCl (Cartia Xt) 120 Mg Cap, 120 MG PO QAM, (Reported) Losartan Potassium (Losartan Potassium) 25 Mg Tab, 25 MG PO QHS, (Reported) Metoprolol Succinate (Metoprolol Succinate) 50 Mg Tab, 50 MG PO QHS, (Reported) Multivitamin (Multivitamins) 1 Each Capsule, 1 CAP PO DAILY, (Reported) Ropinirole HCl (Ropinirole HCl) 5 Mg Tab, 5 MG PO QHS, (Reported) Vitamin B Complex (Vitamin B Complex) 1 Each Tablet, 1 TAB PO DAILY, (Reported) Vitamin D (Vitamin D3) 1,000 Unit Tablet, 1,000 UNITS PO DAILY, (Reported) DINESH MANDEL MD Dec 26, 2018 12:07
[2018-12-26] MEDS ORDERED: HYDROmorphone HCL 2 MG/ML 1ML VIAL (J1170) IV PRN ×2 (12:15)
--- NOTE | 2018-12-26 12:50 | REP ---
Clinical: Status post knee replacement. Technique AP and cross-table lateral views. Findings: The patient is status post left knee replacement with normal positioning and appearance to the femoral and tibial components. Overlying postsurgical changes appreciated. Impression: Status post left knee replacement. Electronically Signed by Ash Small MD 12/26/2018 12:42 P
[2018-12-26] MEDS ORDERED: HYDROMORPHONE HCL 0.5 MG/ 0.5 ML SYRINGE (J1170 PER 1) IV PRN ×2 (13:45)
[2018-12-26] MEDS: VITAMIN D 1,000 INTERNATIONAL UNITS TABLET PO SCH (14:22)
[2018-12-26] MEDS: ASCORBIC ACID 500 MG TAB PO SCH (14:22)
[2018-12-26] MEDS: AZELASTINE 137MCG NASAL SPY 30 ML (ASTELIN) SCH ×2 (14:23→21:00)
[2018-12-26] MEDS: MULTIVITAMINS/MINERALS THERAP 1 TAB PO SCH (14:23)
[2018-12-26] MEDS: VITAMIN B COMPLEX/VIT C CAP PO SCH (14:23)
[2018-12-26] MEDS: PERCOCET 5MG/325MG TAB PO PRN ×2 (17:24→22:34)
[2018-12-26] MEDS ORDERED: ATORVASTATIN 20 MG TAB PO SCH (21:00)
[2018-12-26] MEDS ORDERED: rOPINIRole 1MG TAB PO SCH (21:00)
[2018-12-26] MEDS ORDERED: LOSARTAN 25 MG TAB PO SCH (21:00)
[2018-12-26] MEDS ORDERED: METOPROLOL SUCC (TopROL XL) 50MG **XL** TAB PO SCH (21:00)
--- NOTE | 2018-12-26 23:37 | RO ---
DATE OF PROCEDURE: 12/26/2018 PREPROCEDURE DIAGNOSIS: Left knee degenerative arthritis. POSTPROCEDURE DIAGNOSIS: Left knee degenerative arthritis. PROCEDURE: Left total knee arthroplasty using a size 6 Attune cruciate-retaining femoral component, size 5 tibial tray, 5 mm rotating platform, polyethylene insert, and a 35 mm polyethylene button. All prostheses were cemented, made by [employer]. SURGEON: Dr. Devon Lee PROVIDER NETWORK MANAGER: Mr. Danilo Diez ANESTHESIA: Spinal with left femoral nerve block. COMPLICATIONS: None. ESTIMATED BLOOD LOSS: 20 mL. SPECIMENS: Joint surface. DESCRIPTION OF PROCEDURE: Antibiotics were given intravenously preoperatively and successful left femoral nerve block and then spinal anesthetic was induced. Tourniquet was placed on the left upper thigh and not inflated. The left lower extremity was carefully prepped and draped in the usual sterile fashion and elevated, and then after appropriate time-out, the tourniquet was inflated. A longitudinal incision was made for a medial parapatellar approach to the knee. Bovie cautery was used to coagulate crossing vessels. Subperiosteal dissection around the proximal, medial, and lateral tibial plateau was performed. Patella was everted and the knee flexed. Anterior cruciate ligament (ACL) debrided. Drill placed down the center of the femoral canal followed by the intramedullary alvarez and the distal femoral cutting jig set for a 5-degree valgus angle at 9 mm resection level. Block was pinned into position. Distal femoral cut performed. AP sizing jig applied. There was a small osteophyte impeding our measurement, thus I reapplied the distal femoral block using the bat wing and redrilled it and recut the distal femur. There was no excess bone; it was just a very minimal touchup. And thus the AP sizing jig measured for a size 6. We dialed in the 3 degrees of rotation, the pins were placed and the 4-in-1 block applied. Anterior and posterior chamfer cuts performed. The sulcus jig was applied to the femur, then the sulcus cut performed, and then we exposed the proximal tibia, referencing off the medial tibial condyle at 4 mm resection level. We used the extramedullary alignment jig to estimate being parallel to the mechanical axis of the tibia. Once the block was pinned into position, a secondary check with the extramedullary alvarez confirmed we appeared to be parallel to the mechanical axis. We then performed a proximal tibial osteotomy. The lamina chief business development officer was placed laterally, and we performed a completion medial meniscectomy, debridement of posteromedial osteophytes. We then placed the lamina chief business development officer medially and performed a completion lateral meniscectomy and debridement of posterolateral osteophytes. Spacer blocks were then applied. It was very tight, both in flexion and extension with the 6 mm; thus, I elected to take an additional 2 mm from the proximal tibia. The jig was reapplied and the proximal tibial osteotomy performed again, and this time the spacer block fit nice with good symmetry to varus/valgus stress testing both in flexion and in extension. Still a little snug; thus I thought it might drop down to a size 5 insert. We exposed the proximal tibia, sized for a size 5 tray, which was pinned into position followed by the reamer and broach. Trial femoral component was placed, brought the knee into extension, everted the patella, performed a patellar osteotomy and incised for a 35 button. Lug holes were drilled, trial placed, patellofemoral tracking was anatomic. There was a little snugness in flexion and thus I did release the posterior cruciate ligament (PCL) a bit using the Bovie cautery and the small lehman elevator. We then drilled the lug holes for the femur, removed all the trial components, placed Exparel in the subperiosteal tissues around the proximal tibia and the distal femur, and then copiously pulsatile lavage irrigated out the knee joint as Mr. Diez mixed the cement on the back table. He was also critical to the success of this difficult surgery by helping with appropriate soft tissue manipulation, helped manipulate the knee as needed, and helped to close the wound, helped to prepare the patient amongst many other tasks while mixing the cement, such that I could perform the operation smoothly, efficiently and safely. Once all the bony surfaces were thoroughly dried, we cemented the tibial tray. Removed excess cement. Placed the polyethylene and cemented the femoral component, removed the excess cement, brought the knee out in extension, everted the patella, and cemented the patellar button and held it with a clamp. Then removed excess cement and held the knee in its full extension with clamp in position until the cement hardened. As we were awaiting this, we copiously pulsatile lavage irrigated out the knee joint and then placed tranexamic acid. And then we began closing the arthrotomy by placing two #1 PDS sutures in the apex of the capsular incision and one in the medial parapatellar area, followed by a running #1 double-arm Stratafix. We then irrigated and then closed the deep subdermal tissues with interrupted #2-0 PDS sutures, skin was closed with johnathan, covered by an Optifoam dry sterile bulky dressing. We released the tourniquet after we had closed the capsule. Then, he was transferred to the recovery room in stable condition. There were no intraoperative complications.
[2018-12-27 01:15] VITALS: BP 123/75
[2018-12-27 04:53] VITALS: O2SAT 95
[2018-12-27 06:02] VITALS: BP 141/88
[2018-12-27 06:39] LABS: HEMATOCRIT 49.1 % (42.0-52.0); HEMOGLOBIN 16.6 g/dl (13.5-17.5); MEAN CORPUSCULAR HEMOGLOBIN 32.1 pg (27.0-33.0); MEAN CORPUSCULAR HGB CONC 33.8 g/dl (32.0-36.5); PLATELET COUNT, AUTOMATED 177 10^3/uL (150-450); RED BLOOD COUNT 5.17 10^6/uL (4.30-6.10); WHITE BLOOD COUNT 7.8 10^3/uL (4.0-10.0)
[2018-12-27 07:05] LABS: BLOOD UREA NITROGEN 16 MG/DL (7-18); CALCIUM LEVEL 8.8 MG/DL (8.8-10.2); CARBON DIOXIDE LEVEL 26 MEQ/L (21-32); CHLORIDE LEVEL 102 MEQ/L (98-107); GLOMERULAR FILTRATION RATE > 60.0 (>42); GLUCOSE, FASTING 120 MG/DL (70-100); MAGNESIUM LEVEL 2.1 MG/DL (1.8-2.4); POTASSIUM SERUM 4.1 MEQ/L (3.5-5.1); SODIUM LEVEL 136 MEQ/L (136-145)
[2018-12-27] MEDS ORDERED: XARE10TA PO (08:28)
[2018-12-27] MEDS ORDERED: PERC5TAB12 PO (08:28)
[2018-12-27] MEDS: MULTIVITAMINS/MINERALS THERAP 1 TAB PO SCH (08:59)
[2018-12-27] MEDS: VITAMIN D 1,000 INTERNATIONAL UNITS TABLET PO SCH (08:59)
[2018-12-27] MEDS: ASCORBIC ACID 500 MG TAB PO SCH (08:59)
[2018-12-27] MEDS: VITAMIN B COMPLEX/VIT C CAP PO SCH (08:59)
[2018-12-27 09:00] VITALS: BP 138/82
[2018-12-27] MEDS: PERCOCET 5MG/325MG TAB PO PRN (09:00)
[2018-12-27] MEDS ORDERED: MIRALAX *UNIT DOSE* 17GM PACKET PO SCH (09:00)
[2018-12-27] MEDS ORDERED: MOM 30ML SUSPENSION UDC PO SCH (09:00)
[2018-12-27] MEDS: AZELASTINE 137MCG NASAL SPY 30 ML (ASTELIN) SCH (09:03)
--- NOTE | 2018-12-27 10:13 | IPNPDOC ---
Text Note Date of Service The patient was seen on 12/27/18. NOTE Subjective: Patient is a 78 year old male with a PMHx of CAD s/p stent (2004), HTN, DLP, LUIS ANTONIO on CPAP, RLS, Bilateral OA of his knees who presented to the ER for an elective procedure with orthopedic surgery. Patient has been experiencing left knee pain and has failed conservative therapy. He was scheduled for an elective total left knee arthroplasty. He received medical clearance from his outpatient provider, Dr. Carmen Rincon. He did not require any cardiac clearance. Hospitalist service was called for medical management. Patient was seen and examined at the bedside. Patient reports that he has been out of bed, still reports some discomfort to his left knee. Denies any chest pain, shortness breath, palpitations. Has had no difficulty with urination. Patient has not yet had a bowel movement or passed any gas. Objective: Vitals (See below) General: Lying in bed, no acute distress, comfortable, AAOx3 HEENT: NC, AT CVS: RRR, +S1S2 Lungs: Fair air entry b/l, -w/r/r Abdomen: Soft, ND, NT Extremities: - Edema, - Calf tenderness, L knee in dressing Assessment and plan: Left knee pain - likely 2/2 osteoarthritis - s/p total left knee arthroplasty (POD#1) - Presented to [facility] for an elective procedure with orthopedic surgery - Received outpatient medical clearance from Dr. Carmen Rincon - Pain control, anticoagulation and physical therapy at the direction of orthopedic surgery - Will be working with physical therapy today CAD s/p stent (2004) - c/w Metoprolol and Atorvastatin - Hold ASA; while on full anticoagulation HTN - BP well controlled - c/w Metoprolol, Diltiazem, Losartan, DLP - c/w Atorvastatin LUIS ANTONIO on CPAP - May allow home CPAP use while inpatient RLS - c/w Ropinirole Vitamin D deficiency - c/w supplementation DVT prophylaxis - As per orthopedic surgery Henry BEARD, I+O VSHenry, I+O Laboratory Tests 12/27/18 06:10 Red Blood Count 5.17, Mean Corpuscular Volume 95.0, Mean Corpuscular Hemoglobin 32.1, Mean Corpuscular Hemoglobin Concent 33.8, Red Cell Distribution Width 13.3, Calcium Level 8.8 Vital Signs Date Time Temp Pulse Resp B/P (MAP) Pulse Ox O2 Delivery O2 Flow Rate FiO2 12/27/18 09:00 18 12/27/18 09:00 91 138/82 12/27/18 06:02 97.2 91 12/27/18 04:53 Room Air 12/26/18 20:00 2.0 I&O- Last 24 Hours up to 6 AM 12/27/18 06:00 Intake Total 2430 ml Output Total 2100 ml Balance 330 ml DINESH MANDEL MD Dec 27, 2018 10:13
[2018-12-27] MEDS ORDERED: RIVAROXABAN 10 MG TAB (XARELTO) PO SCH (18:00)
== END 2018-12-27 11:15 | disposition home or self-care (01) | DRG 470 ==
LOC: M OR 07:00 → M MS5PR 12:25
PROVIDERS: ADMIT Orthopaedic Surgery; ATTEND Orthopaedic Surgery
PROC: 0SRD0J9 Replacement of Left Knee Joint with Synthetic Substitute, Cemented, Open Approach (ICD-10-PCS; principal; 2018-12-26 09:30)
DX: M17.12 Unilateral primary osteoarthritis, left knee (principal); E78.5 Hyperlipidemia, unspecified; I10 Essential (primary) hypertension; G25.81 Restless legs syndrome; I25.10 Atherosclerotic heart disease of native coronary artery without angina pectoris; J34.2 Deviated nasal septum; Z79.899 Other long term (current) drug therapy; Z79.82 Long term (current) use of aspirin; G47.33 Obstructive sleep apnea (adult) (pediatric); Z95.2 Presence of prosthetic heart valve; Z96.651 Presence of right artificial knee joint; Z87.891 Personal history of nicotine dependence

== ENCOUNTER → 2019-02-17 | Outpatient (REF) | payer MEDICARE ==
[~2019-02-17] MED LIST changes: -ACETAMINOPHEN 500 MG TAB PO ONE; -LIDOCAINE 1% MDV 20ML VIAL SQ PRN; -LR 1,000 ML IV ONE; +XARE10TA PO; -fentaNYL 100 MCG/2 ML INJECTION (J3010) IV SCH
== END ==
LOC: M SFHCCLAY 16:00
PROVIDERS: ATTEND Family Medicine
DX: R19.7 Diarrhea, unspecified (principal)

== ENCOUNTER → 2019-05-22 | Outpatient (REF) | payer MEDICARE, BC ==
[~2019-05-22] MED LIST changes: +CHOL100029 PO; +FENO48TA13 PO; -FENO48TA2 PO; -VITAD1000T PO
[2019-05-22 11:32] LABS: BASO % 0.8 % (0.0-1.0); EOS # 0.1 10^3/uL (0.0-0.5); EOS % 2.2 % (0.0-3.0); HEMATOCRIT 51.8 % (42.0-52.0); HEMOGLOBIN 16.9 g/dl (13.5-17.5); LYMPH # 1.8 10^3/uL (1.5-5.0); LYMPH % 35.8 % (24.0-44.0); MEAN CORPUSCULAR HEMOGLOBIN 32.1 pg (27.0-33.0); MEAN CORPUSCULAR HGB CONC 32.6 g/dl (32.0-36.5); MEAN CORPUSCULAR VOLUME 98.5 fl (80.0-96.0); MONO # 0.6 10^3/uL (0.0-0.8); MONO % 11.5 % (0.0-5.0); NEUTROPHILS # 2.5 10^3/uL (1.5-8.5); NEUTROPHILS % 49.5 % (36.0-66.0); PLATELET COUNT, AUTOMATED 198 10^3/uL (150-450); RED BLOOD COUNT 5.26 10^6/uL (4.30-6.10)
[2019-05-22 11:42] LABS: ALBUMIN 3.6 GM/DL (3.2-5.2); ALT/SGPT 33 U/L (12-78); BILIRUBIN,TOTAL 0.6 MG/DL (0.2-1.0); BLOOD UREA NITROGEN 18 MG/DL (7-18); CALCIUM LEVEL 8.8 MG/DL (8.8-10.2); CARBON DIOXIDE LEVEL 30 MEQ/L (21-32); CHLORIDE LEVEL 106 MEQ/L (98-107); CHOLESTEROL LEVEL 134 MG/DL (<200); CHOLESTEROL RISK RATIO 2.734 (<5); CREATININE FOR GFR 0.87 MG/DL (0.70-1.30); GLOMERULAR FILTRATION RATE > 60.0 (>42); GLUCOSE, FASTING 91 MG/DL (70-100); HDL CHOLESTEROL 49 MG/DL (>40); LDL CHOLESTEROL 61 MG/DL (<100); NON-HDL-C 85 MG/DL; POTASSIUM SERUM 4.7 MEQ/L (3.5-5.1); SODIUM LEVEL 142 MEQ/L (136-145); TOTAL PROTEIN 6.6 GM/DL (6.4-8.2); TRIGLYCERIDES LEVEL 119 MG/DL (<150)
== END ==
LOC: M SFHCCLAY 09:06
PROVIDERS: ATTEND Family Medicine
DX: I25.10 Atherosclerotic heart disease of native coronary artery without angina pectoris (principal); I10 Essential (primary) hypertension; Z23 Encounter for immunization
CPT/HCPCS: 80053; 80061; 85025; 90732; G0009; G0463

== ENCOUNTER → 2020-03-15 | Outpatient (REF) | payer MEDICARE, BC ==
[~2020-03-15] MED LIST changes: -ASPI81TA85 PO; +ASPI81TA86 PO; -FENO48TA13 PO; +FENO48TA7 PO
[2020-03-15 16:45] LABS: HEMATOCRIT 51.3 % (42.0-52.0); HEMOGLOBIN 17.3 g/dl (13.5-17.5); MEAN CORPUSCULAR HEMOGLOBIN 32.4 pg (27.0-33.0); MEAN CORPUSCULAR HGB CONC 33.7 g/dl (32.0-36.5); MEAN CORPUSCULAR VOLUME 96.1 fl (80.0-96.0); PLATELET COUNT, AUTOMATED 202 10^3/uL (150-450); RED BLOOD COUNT 5.34 10^6/uL (4.30-6.10); WHITE BLOOD COUNT 5.6 10^3/uL (4.0-10.0)
[2020-03-15 21:04] LABS: BLOOD UREA NITROGEN 18 MG/DL (7-18); CHLORIDE LEVEL 105 MEQ/L (98-107); CREATININE FOR GFR 0.96 MG/DL (0.70-1.30); GLOMERULAR FILTRATION RATE > 60.0 (>42); GLUCOSE, FASTING 81 MG/DL (70-100); POTASSIUM SERUM 4.5 MEQ/L (3.5-5.1); SODIUM LEVEL 141 MEQ/L (136-145)
[2020-03-15 21:05] LABS: CALCIUM LEVEL 9.5 MG/DL (8.8-10.2); CARBON DIOXIDE LEVEL 30 mmol/L (20-29)
[2020-03-15 21:06] LABS: ALBUMIN 3.7 GM/DL (3.2-5.2); ALT/SGPT 43 IU/L (0-32); BILIRUBIN,TOTAL 0.9 MG/DL (0.2-1.0); CHOLESTEROL LEVEL 157 MG/DL (<200); CHOLESTEROL RISK RATIO 2.907 (<5); HDL CHOLESTEROL 54 MG/DL (>40); LDL CHOLESTEROL 67.8 MG/DL (<100); NON-HDL-C 103 MG/DL; TOTAL PROTEIN 6.8 GM/DL (6.4-8.2); TRIGLYCERIDES LEVEL 176 MG/DL (<150)
== END ==
LOC: M SFHCCLAY 16:15
PROVIDERS: ATTEND Family Medicine
DX: I25.10 Atherosclerotic heart disease of native coronary artery without angina pectoris (principal); E78.2 Mixed hyperlipidemia; I10 Essential (primary) hypertension
CPT/HCPCS: 36415; 80053; 80061; 85027; G0463

== ENCOUNTER → 2021-11-05 | Outpatient (CLI) | payer MEDICARE, BC ==
[~2021-11-05] MED LIST changes: +ACET1TAB55 PO; +AMLO1TAB24 PO; +ASPI81TA26 PO; -FENO48TA7 PO; +FENO48TA8 PO; +IBUP200C27 PO; +LOSA25TA13 PO; -LOSA25TA14 PO; +ROPI0.5T3 PO; +VITMTA PO
== END ==
LOC: M LABSMTC 10:55
PROVIDERS: ATTEND Internal Medicine Gastroenterology
DX: Z01.818 Encounter for other preprocedural examination (principal); Z11.52 Encounter for screening for COVID-19

== ENCOUNTER 2021-11-10 10:16 | Day surgery (SDC) | payer MEDICARE, BC ==
[~2021-11-10] VITALS: Ht 177.8 cm; Wt 109.3 kg
[~2021-11-10 10:16] MED LIST changes: +NS 1,000 ML IV ONE
[2021-11-10] MEDS ORDERED: propofoL 200 MG/20 ML VIAL As Ordered ONE (11:03)
[2021-11-10] MEDS ORDERED: LIDOCAINE 2% 100MG/5ML SDV (FOR ANES.) As Ordered ONE (11:03)
[2021-11-10 11:45] VITALS: BP 124/66
== END 2021-11-10 11:55 | disposition home or self-care (01) ==
LOC: M OPP 10:16
PROVIDERS: ATTEND Internal Medicine Gastroenterology
DX: Z12.11 Encounter for screening for malignant neoplasm of colon (principal); Z86.010 Personal history of colon polyps; K57.30 Diverticulosis of large intestine without perforation or abscess without bleeding; K64.0 First degree hemorrhoids; Z79.82 Long term (current) use of aspirin; Z79.899 Other long term (current) drug therapy; G47.33 Obstructive sleep apnea (adult) (pediatric); Z99.89 Dependence on other enabling machines and devices; Z87.891 Personal history of nicotine dependence; Z95.5 Presence of coronary angioplasty implant and graft

== ENCOUNTER → 2021-12-16 | Outpatient (CLI) | payer MEDICARE, BC ==
[~2021-12-16] MED LIST changes: -NS 1,000 ML IV ONE
== END ==
LOC: M CLY 11:12
PROVIDERS: ATTEND Family Medicine
DX: M25.571 Pain in right ankle and joints of right foot (principal)

== ENCOUNTER → 2022-09-22 | Outpatient (CLI) | payer MEDICARE, BC ==
[~2022-09-22] MED LIST changes: +ASCO500C3 PO; -POTA10CA32 PO; +POTA10CA33 PO; -PURE500C5 PO
== END ==
LOC: M RAD 12:03
PROVIDERS: ATTEND Internal Medicine Cardiovascular Disease
DX: G45.3 Amaurosis fugax (principal)

== ENCOUNTER → 2023-09-30 | Outpatient (CLI) | payer MEDICARE, BC ==
[~2023-09-30] MED LIST changes: -POTA10CA33 PO; +POTA10CA60 PO; -ROPI0.5T3 PO; +ROPI0.5T33 PO; +ROPI5TAB23 PO; -ROPI5TAB3 PO
== END ==
LOC: M CLY 14:55
PROVIDERS: ATTEND Family Medicine
DX: K59.89 Other specified functional intestinal disorders (principal)

== ENCOUNTER → 2023-10-26 | Outpatient (CLI) | payer MEDICARE, BC | LOC: M RAD 07:26 | PROVIDERS: ATTEND Physician Assistant Surgical | DX: M25.532 Pain in left wrist (principal); M18.12 Unilateral primary osteoarthritis of first carpometacarpal joint, left hand; M67.432 Ganglion, left wrist ==

== ENCOUNTER → 2024-02-01 | Outpatient (CLI) | payer MEDICARE, BC ==
[~2024-02-01] MED LIST changes: -AZEL0.055; +AZEL1SPR4; -POTA10CA60 PO; +POTA10CA70 PO
== END ==
LOC: M CLY 07:56
PROVIDERS: ATTEND Family Medicine
DX: M25.511 Pain in right shoulder (principal)

== ENCOUNTER → 2024-02-08 | Outpatient (CLI) | payer MEDICARE, BC | LOC: M CLY 08:14 | PROVIDERS: ATTEND Family Medicine | DX: M19.011 Primary osteoarthritis, right shoulder (principal); M25.511 Pain in right shoulder ==

== ENCOUNTER → 2024-06-21 | Outpatient (CLI) | payer MEDICARE, OTHER | LOC: M RAD 14:05 | PROVIDERS: ATTEND Student in an Organized Health Care Education/Training Program | DX: H05.20 Unspecified exophthalmos (principal) ==

== ENCOUNTER 2025-02-05 11:55 | Day surgery (SDC) | payer MEDICARE, BC ==
[~2025-02-05] VITALS: Ht 177.8 cm; Wt 110.1 kg
[~2025-02-05 11:55] MED LIST changes: -FLOM0.4C39 PO; +TAMS-18 PO; +THERTAB52 PO; +TOPR25TA PO
[2025-02-05] MEDS ORDERED: LIDOCAINE 2% 100 MG/5 ML SDV (FOR ANES.) As Ordered ONE (13:27)
[2025-02-05 13:55] VITALS: TEMP 98.3
[2025-02-05 14:16] VITALS: BP 145/75; O2SAT 99
== END 2025-02-05 14:17 | disposition home or self-care (01) ==
LOC: M OPP 11:55
PROVIDERS: ATTEND Internal Medicine Gastroenterology
DX: K64.0 First degree hemorrhoids (principal); Z86.0100 Personal history of colon polyps, unspecified; G47.30 Sleep apnea, unspecified; Z95.5 Presence of coronary angioplasty implant and graft; Z79.82 Long term (current) use of aspirin; Z79.899 Other long term (current) drug therapy; Z87.891 Personal history of nicotine dependence